=== PATIENT | male | born 1975 | race African-American/Black ===

== ENCOUNTER 2020-03-10 06:39 | Emergency (ER) | payer BC ==
[~2020-03-10] VITALS: Ht 182.9 cm; Wt 93.0 kg
[2020-03-10] MEDS ORDERED: ZPAK PO (08:00)
[2020-03-10] MEDS ORDERED: PREDNISONE 20 M20 M1 PO (08:00)
[2020-03-10] MEDS ORDERED: ZOFRAN ODT4 MG SUBLING (08:00)
[2020-03-10 08:16] VITALS: BP 128/72
== END 2020-03-10 08:18 | disposition home or self-care (01) ==
LOC: M.ERS 06:39
DX: U07.1 COVID-19 (principal); F17.210 Nicotine dependence, cigarettes, uncomplicated